=== PATIENT | female | born 1965 | race Caucasian/White ===

== ENCOUNTER 2019-01-22 10:00 | Outpatient (CLI) | payer BC ==
--- NOTE | 2019-01-23 08:48 | XRAY Report ---
Reason: GANGLION, LEFT WRIST Procedure Date: 01/22/2019 Accession Number: [id number] / [id number] Procedure: XR - Wrist 4 View LT CPT Code: Final Report FULL RESULT: EXAM: LEFT WRIST RADIOGRAPHY EXAM DATE: 01/22/2019 10:14 AM. CLINICAL HISTORY: Ganglion, left wrist. COMPARISON: None. TECHNIQUE: 4 views. FINDINGS: Bones: Normal. No fractures or bone lesions. Joints: Normal. No subluxations. Soft Tissues: Mild focal soft tissue prominence lateral to the radial styloid. IMPRESSION: 1. No osseous abnormality. 2. Mild focal soft tissue prominence lateral to the radial styloid. If further evaluation is indicated, MR imaging or ultrasound could be performed. [facility]
== END 2019-01-22 10:01 | disposition home or self-care (01) ==
LOC: DI 10:00
PROVIDERS: ATTEND Nurse Practitioner Family
DX: M67.432 Ganglion, left wrist (principal)